=== PATIENT | female | born 1980 | race Caucasian/White ===

== ENCOUNTER 2019-09-03 09:47 | Day surgery (SDC) | payer BC ==
--- NOTE | 2019-09-03 08:27 | HP ---
DATE OF SURGERY: 09/03/2019 HISTORY OF PRESENT ILLNESS: The patient is a 38 year-old having symptoms over the past year, worse over the past month or so, right upper quadrant pain radiating to her back associated with some diarrhea. It happens with eating anything. CT scan no stones. HIDA ejection fraction 18%. PAST MEDICAL HISTORY: Diabetes. Hypertension. PAST SURGICAL HISTORY: Knee surgery in 1999 and 2000. Wrist surgery 2010. section 2008, 2010, 2013. Leg surgery in 2014. MEDICATIONS: Metformin, metoprolol. ALLERGIES: SULFA. VIOXX. VICODIN. ADHESIVES. FAMILY HISTORY: Diabetes. Cancer. Hypertension. SOCIAL HISTORY: No smoking or alcohol abuse. REVIEW OF SYSTEMS: Fourteen systems reviewed. No chest pain or palpitations other systems negative or noncontributory as above and per preadmission questionnaire. PHYSICAL EXAMINATION: GENERAL: No acute distress. HEENT: Sclerae nonicteric. NECK: No JVD. CHEST: Equal excursion, nonlabored breathing. CVS: Regular rate and rhythm. ABDOMEN: Soft, some mild tenderness right upper quadrant. No peritoneal signs. EXTREMITIES: No significant edema. NEURO: Alert, oriented, moving extremities symmetrically. No gross motor deficits noted. IMPRESSION: Symptomatic biliary dyskinesia, probable chronic cholecystitis. I feel the patient will benefit from cholecystectomy. She is shown the gallbladder pamphlet and risk sheet, explained the procedure in detail including but not limited to bleeding or infection, risk of bowel injury or perforation possibly requiring open procedure, risk of missed or nondiagnosis or incomplete exam, possibly requiring barium enema other studies or procedures. General risk of anesthesia, deep venous thrombosis, pulmonary embolism or pneumonia, perioperative risk of aches, pains, bloating, constipation but not limited to, possibility procedure may not improve her symptoms. She may need further work up and/or testing, endoscopy, other studies or procedures. She understands and agrees to the planned procedure, will proceed with laparoscopic cholecystectomy with possible open as an outpatient.
[~2019-09-03 09:47] MED LIST: Lactated Ringers 1,000 ML IV ONE; MEFOXIN 2 GM PREMIX** 2 GM/50 ML ML IV SCH; Sensorcaine 0.25% 10 ML ONE
[2019-09-03] MEDS ORDERED: Lactated Ringers 1,000 ML IV ONE ×2 (10:09→14:34)
[2019-09-03] MEDS ORDERED: MEFOXIN 2 GM PREMIX** 2 GM/50 ML ML IV ONE (10:09)
[2019-09-03] MEDS: Lactated Ringers 1,000 ML IV SCH ×2 (10:10→14:43)
[2019-09-03] MEDS ORDERED: Zemuron 100 MG/10 ML ONE (12:12)
[2019-09-03] MEDS ORDERED: SUBLIMAZE 250 MCG/5 ML ONE (12:12)
[2019-09-03] MEDS ORDERED: Versed 2 MG/2 ML Injection ONE (12:12)
[2019-09-03] MEDS ORDERED: DIPRIVAN 200 MG/20 ML IV ONE (12:12)
[2019-09-03] MEDS ORDERED: Decadron 4 MG INJ ONE (12:25)
[2019-09-03] MEDS ORDERED: BRIDION 200MG/2ML IV ONE (12:25)
[2019-09-03] MEDS ORDERED: Zofran 4 MG/2 ML VIAL ONE (12:25)
[2019-09-03] MEDS ORDERED: TORAdol 30 mg Injection ONE (12:49)
[2019-09-03] MEDS ORDERED: SUBLIMAZE 100 MCG/2 ML ONE (13:16)
--- NOTE | 2019-09-03 14:11 | OP ---
SURGERY DATE/TIME: 09/03/2019 1212 PREOPERATIVE DIAGNOSIS: Symptomatic biliary dyskinesia, chronic cholecystitis. POSTOPERATIVE DIAGNOSIS: Symptomatic biliary dyskinesia, chronic cholecystitis. PROCEDURE: Laparoscopic cholecystectomy. SURGEON: Dr. David Shoemaker. ANESTHESIA: General. ESTIMATED BLOOD LOSS: Minimal. INDICATIONS: As noted above. Risks and benefits explained in detail but not limited to and consent obtained. DESCRIPTION OF PROCEDURE AND FINDINGS: The patient was taken to the operating room. General anesthesia induced. Abdomen prepped and draped in the usual sterile fashion. After official time out and no disagreement with planned procedure, a transverse incision made at the supraumbilical area. Fascia grasped and pulled upward. Veress needle inserted and tested with saline. Pneumoperitoneum accomplished insufflating opening pressure of 0-15. An 11 mm bladeless port and camera inserted without difficulty followed by two - 5 mm right upper quadrant ports and 5 mm epigastric port. There was no evidence of any intra-abdominal injury secondary to trocar insertion. The gallbladder grasped retracted over the edge of the liver. Dissection carried through chronic fibrofatty, chronic inflammation dissecting posterior, lateral to anterior fashion. Slowly and carefully cystic duct and infundibular junction main cystic artery isolated until the critical view obtained both anteriorly and posteriorly. Once this was accomplished, cystic duct and cystic artery clipped x3 and divided in the usual fashion. Gallbladder slowly and carefully dissected free from its dense attachment to liver bed staying directly on the gallbladder wall clipping additional oozing side branches off the cystic artery directly on the gallbladder wall as necessary. Just prior to releasing from final attachments to the anterior edge of the liver, the liver bed re-inspected. Clips noted to be in place cystic duct and cystic artery stumps. No signs of any active bleeding or bile leakage. It was felt there was no benefit from drain placement. Copious amount of irrigation accomplished lateral to the liver and subhepatic space irrigating until clear. The gallbladder had been released from final attachments pulled up and out the 10/11 port site in supraumbilical area without difficulty and passed off. The fascial defect closed with puncture closure device #1 Vicryl under direct vision with the camera. Pneumoperitoneum decompressed. The wound irrigated out. Skin incision closed with 4-0 Vicryl. Steri-Strips and sterile dressing applied. 0.25% Marcaine local injected along the skin incision fascial defect. There were no immediate complications. Findings were discussed with the family out in the waiting area. She will be transferred to the recovery room in stable condition.
[2019-09-03 15:15] VITALS: O2SAT 98
[2019-09-03 15:30] VITALS: BP 132/85; PULSE 78
== END 2019-09-03 15:41 | disposition home or self-care (01) ==
LOC: SDC 09:47
PROVIDERS: ATTEND Surgery
DX: K81.1 Chronic cholecystitis (principal); K82.8 Other specified diseases of gallbladder
CPT/HCPCS: 84703; 88304; J0694; J1100; J1885; J2250; J2405; J2704; J3010